=== PATIENT | female | born 2000 | race Caucasian/White ===

== ENCOUNTER 2022-09-27 15:18 | Emergency (ER) | payer OTHER, MEDICAID ==
[2022-09-27 15:53] LABS: APPEARANCE,URINE SLIGHTLY CLOUDY (CLEAR); BILIRUBIN,URINE NEGATIVE (NEGATIVE); GLUCOSE,URINE NEGATIVE (NEGATIVE); KETONES,URINE NEGATIVE (NEGATIVE); LEUKOCYTE ESTERASE,URINE SMALL (NEGATIVE); NITRITE,URINE NEGATIVE (NEGATIVE); OCCULT BLOOD,URINE MODERATE (NEGATIVE); PROTEIN,URINE NEGATIVE (NEGATIVE); UROBILINOGEN,URINE 0.2 EU/dL (0.2-1.0)
[2022-09-27 16:03] LABS: AMORPHOUS SEDIMENT,URINE NOT SEEN; BACTERIA,URINE MODERATE; COLOR,URINE OTHER (YELLOW); EPITHELIAL CELLS,URINE RARE; MUCUS,URINE RARE; WBC,URINE 20-30 (0-5)
[2022-09-27 16:12] VITALS: BP 131/87; PULSE 77
[2022-09-27] MEDS ORDERED: cefTRIAXone 1 GM, Lidocaine 1% 2.1 ML IM ONE ×2 (16:53)
== END 2022-09-27 17:36 | disposition home or self-care (01) ==
LOC: JP.ED 15:18
DX: N39.0 Urinary tract infection, site not specified (principal); Z88.2 Allergy status to sulfonamides
CPT/HCPCS: 81001; 81025; 87086; 87210; 96372; 99283; J0696

== ENCOUNTER 2024-11-04 06:20 | Emergency (ER) | payer MEDICAID, OTHER ==
[2024-11-04 06:45] VITALS: BP 136/73; PULSE 102
[2024-11-04 07:00] LABS: APPEARANCE,URINE CLOUDY (CLEAR); GLUCOSE,URINE NEGATIVE (NEGATIVE); OCCULT BLOOD,URINE LARGE (NEGATIVE)
[2024-11-04 07:06] LABS: SQUAMOUS EPITHELIAL CELLS,UR NOT SEEN /HPF
== END 2024-11-04 09:14 | disposition home or self-care (01) ==
LOC: JP.ED 06:20
DX: N39.0 Urinary tract infection, site not specified (principal); Z88.2 Allergy status to sulfonamides; Z79.899 Other long term (current) drug therapy
CPT/HCPCS: 74176; 74176-26; 81001; 99283; 99284